=== PATIENT | female | born 1980 | race Hispanic/Latino ===

== ENCOUNTER 2016-04-25 00:05 | Emergency (ER) | payer SELFPAY ==
[~2016-04-25] VITALS: Ht 144.8 cm; Wt 54.8 kg
[~2016-04-25 00:05] MED LIST: AMOXICILLIN250 M1 OR; AMOXICILLIN500 MG PO; CIPROFLOXACN500 MG PO; DIABETA2.5 MG OR; FERROUS SULFAT325 MG PO; GLIPIZIDE ER2.5 MG PO; GLYBURIDE5 MG PO; IBUPROFEN600 MG PO; KEFLEX500 MG OR; LOPID600 MG PO; LORTAB 7.57.5 MG PO; MACRODANTIN100 MG OR; METFORMIN500 M1 PO; METFORMIN500 MG PO; NO HOME MEDS; NO MEDS; NOVOLIN N1000 UNITS SC; NOVOLIN R SC; NOVOLOG MIX100 U/ML SC; PRENATAL1 TAB OR; PREVACID30 M1 PO; PROCARDIA10 MG PO; TORADOL OR; ULTRAM50 MG OR; UNKNOWN INSULIN; ZOFRAN4 MG OR; ZPAK PO; [UNRECOGNIZED DRUG - OTHER]
[2016-04-25 00:59] LABS: URINE BILIRUBIN - DIPSTICK NEGATIVE (NEGATIVE); URINE BLOOD DIPSTICK SMALL (NEGATIVE); URINE CLARITY CLOUDY; URINE COLOR YELLOW; URINE GLUCOSE - DIPSTICK >=1000 mg/dL (NEGATIVE); URINE KETONE NEGATIVE (NEGATIVE); URINE LEUK ESTERASE NEGATIVE (Negative); URINE NITRITE - DIPSTICK NEGATIVE (Negative); URINE PROTEIN - DIPSTICK 30 mg/dL (NEG-TRACE); URINE UROBILINOGEN - DIPSTICK 0.2 E.U./dL (0.2)
[2016-04-25 01:09] LABS: URINE BACTERIA MODERATE hpf; URINE RBC 0-2 RBC/hpf (0-5); URINE SQUAMOUS EPITHELIAL CELL FEW EPI/hpf (0-FEW)
[2016-04-25 01:13] LABS: HEMATOCRIT 39.8 % (37.0-47.0); HEMOGLOBIN 12.6 g/dl (12.0-16.0); IMMATURE GRANULOCYTES 0.4 % (0.0-1.0); MEAN CELL VOLUME 67.5 fL CALC (80.0-100.0); MEAN CORPUSCULAR HGB 21.4 pG CALC (26.0-32.0); MEAN CORPUSCULAR HGB CONC 31.7 g/L CALC (32.0-36.0); NEUT# 8.49 thou/uL (2.00-7.15); RED BLOOD COUNT 5.9 mill/uL (4.20-5.60); RED CELL DISTRI WIDTH 18.5 % (11.5-15.5)
[2016-04-25 01:25] LABS: ALBUMIN 4.2 g/dL (3.2-5.0); ALKALINE PHOSPHATASE 152 u/l (38-126); AMYLASE 51 u/l (30-110); ANION GAP 19 (6-22 (CALC)); BILIRUBIN, TOTAL 0.9 mg/dL (0.0-1.4); BUN 12 mg/dL (7-17); BUN/CREATININE RATIO 27 (12-20 (CALC)); CALCIUM 9.2 mg/dL (8.4-10.2); CARBON DIOXIDE 24 mmol/l (22-30); CHLORIDE 99 mmol/l (95-108); CREATININE 0.5 mg/dL (0.5-1.0); GFR > 60 ML/MIN (>=60 (CALC)); GFR FOR AFR.AMER. > 60 ML/MIN (>=60 (CALC)); GLUCOSE 405 mg/dL (65-105); LIPASE 125 u/l (23-300); POTASSIUM 4.3 mmol/l (3.5-5.1); SGOT/AST 18 u/l (14-36); SGPT/ALT 23 u/l (9-52); SODIUM 138 mmol/l (137-146); TOTAL PROTEIN 8.3 g/dL (6.3-8.2)
[2016-04-25] MEDS ORDERED: Levaquin PO ×2 (06:09→06:15)
[2016-04-25 06:11] VITALS: BP 100/61
[2016-04-25] MEDS ORDERED: METFORMIN1000 MG PO ×2 (06:11→06:15)
== END 2016-04-25 06:32 | disposition home or self-care (01) | DRG 690 ==
LOC: ED 00:05
PROVIDERS: Emergency Medicine
DX: N39.0 Urinary tract infection, site not specified (principal); E11.65 Type 2 diabetes mellitus with hyperglycemia; R50.9 Fever, unspecified; R11.2 Nausea with vomiting, unspecified; R10.9 Unspecified abdominal pain

== ENCOUNTER 2019-02-10 19:50 | Inpatient (IN) | payer SELFPAY ==
[~2019-02-10] VITALS: Ht 147.3 cm; Wt 69.0 kg
[~2019-02-10 19:50] MED LIST changes: +Levaquin PO; +METFORMIN1000 MG PO
--- NOTE | 2019-02-10 19:50 | NUR ---
PT TO ROOM 12 BY EMS. REPORTED PT DRANK A LOT OF ETOH TONIGHT THEN FELT CHEST PAIN. PT DENIES ANY PAIN NOW.
[2019-02-10 20:25] LABS: HEMOGLOBIN 13.7 g/dl (12.0-16.0); IMMATURE GRANULOCYTES 0.6 % (0.0-5.0); MEAN CORPUSCULAR HGB 28.8 pG CALC (26.0-32.0); MEAN CORPUSCULAR HGB CONC 35.1 g/L CALC (32.0-36.0); NEUT# 11.73 thou/uL (2.00-7.15); RED BLOOD COUNT 4.75 mill/uL (4.20-5.60); RED CELL DISTRI WIDTH 13.2 % (11.5-15.5)
[2019-02-10 20:27] LABS: MEAN CELL VOLUME 82.1 fL CALC (80.0-100.0)
[2019-02-10 20:29] LABS: URINE BILIRUBIN - DIPSTICK NEGATIVE (NEGATIVE); URINE BLOOD DIPSTICK TRACE-LYSED (NEGATIVE); URINE COLOR YELLOW; URINE GLUCOSE - DIPSTICK >=1000 mg/dL (NEGATIVE); URINE KETONE 40 mg/dL (NEGATIVE); URINE LEUK ESTERASE NEGATIVE (NEGATIVE); URINE PROTEIN - DIPSTICK 100 mg/dL (NEG-TRACE); URINE UROBILINOGEN - DIPSTICK 0.2 E.U./dL (0.2)
[2019-02-10 20:33] LABS: BARBITURATES NEGATIVE (NEGATIVE); COCAINE NEGATIVE (NEGATIVE); METHADONE NEGATIVE (NEGATIVE); OXCYCODONE NEGATIVE (NEGATIVE); TETRAHYDROCANNABIONOL NEGATIVE (NEGATIVE); TRICYLIC ANTIDEPRESSANTS NEGATIVE (NEGATIVE)
[2019-02-10 20:37] LABS: URINE NITRITE - DIPSTICK POSITIVE (Negative)
[2019-02-10 20:48] LABS: URINE SQUAMOUS EPITHELIAL CELL FEW EPI/hpf (0-FEW)
[2019-02-10 20:49] LABS: URINE BACTERIA FEW hpf
--- NOTE | 2019-02-10 20:50 | NUR ---
PT'S FAMILY ASKED IF WE COULD TRANSFER PT TO [place]. FAMILY STATED PT WANTED TO GO TO [place] TO BEGIN WITH BUT THEY COULDNT TAKE HER. INFORMED PT WE HAVE TO WAIT FOR TEST RESULTS TO SEE IF THERE IS A REASON TO ADMIT OR TRANSFER.
[2019-02-10 21:16] LABS: ALBUMIN 4.6 g/dL (3.2-5.0); ALKALINE PHOSPHATASE 130 u/l (38-126); ANION GAP 24 (6-22 (CALC)); BILIRUBIN, TOTAL 0.7 mg/dL (0.0-1.4); BUN 14 mg/dL (7-17); BUN/CREATININE RATIO 49 (12-20 (CALC)); CHLORIDE 101 mmol/l (95-108); CREATININE 0.3 mg/dL (0.5-1.0); ETHYL ALCOHOL 149 mg/dl (0-30); GFR > 60 ML/MIN (>=60 (CALC)); GFR FOR AFR.AMER. > 60 ML/MIN (>=60 (CALC)); POTASSIUM 3.5 mmol/l (3.5-5.1); SGOT/AST 28 u/l (14-36); SODIUM 138 mmol/l (137-146); TOTAL PROTEIN 8.9 g/dL (6.3-8.2)
[2019-02-10 21:17] LABS: CARBON DIOXIDE 17 mmol/l (22-30)
--- NOTE | 2019-02-10 21:26 | NUR ---
PT MORE ALERT. NEW ORDERS FOR LABS AND ABG PLACED.
[2019-02-10 21:27] LABS: MYOGLOBIN 58 ng/mL (0 - 62)
--- NOTE | 2019-02-10 22:08 | NUR ---
LACTIC ACID 3.9- DR GALINDO INFORMED. PT ALREADY HAD 1 LITER OF NS.
--- NOTE | 2019-02-10 22:54 | NUR ---
SBAR PRINTED TO FLOOR
--- NOTE | 2019-02-10 23:36 | NUR ---
REPEAT LACTIC ACID 3.2- PT AWAKE ALERT AND TALKING WITH FAMILY. PT STATES HER BLOOD SUGAR IS ALWAYS OVER 200 AND DOES NOT HAVE A DOCTOR SHE FOLLOWS UP WITH.
--- NOTE | 2019-02-10 23:58 | NUR ---
REPORT GIVEN TO KRISHNA REGALADO.
[2019-02-11] VITALS (18 sets, daily range): BP systolic 92–139; BP diastolic 58–77
--- NOTE | 2019-02-11 | NUR ---
Admission Note Report Given to: KRISHNA MCMAHON Transported by: Wheelchair X Stretcher Transported with: X Nurse Transporter X Patent IV O2 X Treating Engineer HARDEN CATHETER TO BSD. 1200 CC URINE OUT PRIOR TO TRANSPORT.
--- NOTE | 2019-02-11 00:15 | NUR ---
PT ARRIVES VIA ER STRETCHER ACCOMPANIED BY ER NURSE, PT CONNECTED TO MONITOR. PT ABLE TO WALK TO ICU BED 5 WITH ASSIT X1, UNSTEADY GAIT OBSERVED. PT ON RA, NO SOB NOTED. DENIES CHEST PAIN, REPORTS BACK PAIN. DAUGHTER AND SISTER IN LAW WERE BROUGHT TO ROOM. PTS DAUGHTER ABLE TO HELP TO ANSWER MEDICAL HISTORY QUESTIONS. PT'S DAUGHTER REPORTS PT WAS DISCHARGED FROM [facility] LESS THAN ONE WEEK AGO FOR CHEST PAIN, BACK PAIN, AND ELEVATED BLOOD SUGAR, DAUGHTER REPORTS SHE WAS STARTED ON A ACID REFLUX MEDICATION AND METFORMIN, DAUGHTER REPORTS PATIENT KNEW SHE WAS DIABETIC BEFORE SHE WAS HOSPITALZIED THIS LAST TIME BUT DID NOT TAKE MEDICATION FOR IT UNTIL SHE WAS DISCHARGED AND PRESCRIBED METFORMIN THIS LAST TIME. PATIENT DROWSY, ORIENTED X3. HEAD TO TOE NURSING ASSESSMENT PERFORMED. HARDEN CATHETER INTACT, DRAINS YELLOW/CLOUDY URINE. R-WRIST 18G IV INTACT, SALINE LOCKED. LAZARUS HOSE PLACED. DAUGHTER REPORTS PT OCCASSIONALLY DRINKS TEQUILA AND SHE WAS POSITIVE FOR ALCOHOL BECAUSE SHE DRANK ALCOHOL BECAUSE SHE REPORTS SHE HAD A BIG FAMILY GATHERING. POC FOR TONIGHT DISCUSSED, PT AGREES. CALL LIGHT WITHIN REACH. SELF REPOSITIONS.
--- NOTE | 2019-02-11 00:45 | NUR ---
CALLED AND SPOKE TO DR GALINDO IN ER REGARDING IF MORE LACTIC ACIDS NEED TO BE ORDERED, HE ORDERS PT DOES NOT NEED MORE LACTIC ACID TO BE DRAWN, CONTINUE ISULIN DRIP PER DKA PROTOCOL. TYLENOL 500 MG PO Q6H PRN FOR GALVAN ORDERED. I HAVE PLACED LAB ORDERS ACCORDING TO DKA PROTOCOL, WILL START INSULIN DRIP ACCORDING TO RECENT BLOOD WORK.
--- NOTE | 2019-02-11 01:14 | NUR ---
NURSING TECHNICIAN AT BEDSIDE.
--- NOTE | 2019-02-11 01:21 | NUR ---
NURSE FRANKLIN HAS STARTED A NEW IV.
[2019-02-11 01:43] LABS: MAGNESIUM 1.7 mg/dL (1.6-2.3)
[2019-02-11 01:44] LABS: ANION GAP 17 (6-22 (CALC)); BUN 8 mg/dL (7-17); BUN/CREATININE RATIO 42 (12-20 (CALC)); CARBON DIOXIDE 17 mmol/l (22-30); CHLORIDE 106 mmol/l (95-108); CREATININE 0.2 mg/dL (0.5-1.0); GFR > 60 ML/MIN (>=60 (CALC)); GFR FOR AFR.AMER. > 60 ML/MIN (>=60 (CALC)); POTASSIUM 3.5 mmol/l (3.5-5.1); SODIUM 137 mmol/l (137-146)
--- NOTE | 2019-02-11 02:52 | NUR ---
PT LAYS ON HER LEFT SIDE. NO ACUTE DISTRESS SHOWN, REPORTS PAIN HAS DECREASED. SISTER IN LAW AT BEDSIDE. CALL LIGHT WITHIN REACH.
--- NOTE | 2019-02-11 04:00 | NUR ---
PATIENT LAYS WITH HOB 30 DEGREES. RESTS WITH EYES CLOSED. NO ACUTE DISTRESSS HOWN. NO COMPLAINTS, SISTER IN LAW REMAINS AT BEDISDE. CALL LIGHT WITHIN REACH.
[2019-02-11 05:49] LABS: ANION GAP 13 (6-22 (CALC)); BUN 10 mg/dL (7-17); BUN/CREATININE RATIO 46 (12-20 (CALC)); CARBON DIOXIDE 20 mmol/l (22-30); CHLORIDE 105 mmol/l (95-108); CREATININE 0.2 mg/dL (0.5-1.0); GFR > 60 ML/MIN (>=60 (CALC)); GFR FOR AFR.AMER. > 60 ML/MIN (>=60 (CALC)); POTASSIUM 3.5 mmol/l (3.5-5.1); SODIUM 134 mmol/l (137-146)
--- NOTE | 2019-02-11 08:00 | NUR ---
PT SEEN AWAKE, ALERT, ORIENTED X 3, COMORAN ONLY. INSULIN DRIP RUNNING AT 2 UNITS HOURLY, D5.45NS AT 125 ML/HR ALSO. HARDEN CATHETER IN PLACE. NO COMPLAINT OF CHEST PAIN OR SHORTNESS OF BREATH OR OTHERWISE.
--- NOTE | 2019-02-11 10:00 | NUR ---
DR BARBOZA HAS BEEN IN TO SEE PT, NEW ORDERS RECEIVED. HARDEN CATHETER REMOVED. INSULIN DRIP STOPPED, LEVEMIR GIVEN. AT BEDSIDE.
--- NOTE | 2019-02-11 12:00 | NUR ---
PT NOW WITH INSULIN DRIP OFF, APPEARS TO BE IN NO DISTRESS. PT ATE LUNCH WELL.
--- NOTE | 2019-02-11 16:00 | NUR ---
PT REMAINS BEFORE, NO DISTRESS, NO COMPLAINTS. AT BEDSIDE.
--- NOTE | 2019-02-11 18:45 | NUR ---
PATIENT LAYS WITH HOB 45 DEGREES, AT BEDSIDE, IS ALERT, AWAKE, NO NEEDS AT THIS TIME. CALL LIGHT WITHIN REACH.
--- NOTE | 2019-02-11 19:50 | NUR ---
PATIENT LAYS WITH HOB 45 DEGREES. ON ROOM AIR, SATS GREATER THAN 95%. ALERT AND ORIENTED X4. HEAD TO TOE NURSING ASSESSMENT PERFORMED. R-WR 18G AND LFA 22 G IV'S INTACT, NS INFUSING AT 125 ML/HR. PATIENT C/O BACK PAIN, ACCEPTS TYLENOL. AT BEDSIDE. POC FOR TONIGHT DISCUSSED. LAZARUS HOSE INTACT, SELF REPSOITIONS. CALL LIGHT WITHIN REACH.
--- NOTE | 2019-02-11 21:33 | NUR ---
BEDTIME MEDICATIONS PROVIDED, DAUGHTER HAS ARRIVED AT BEDSIDE. NO NEEDS OR COMPLAINTS AT THIS TIME.
--- NOTE | 2019-02-11 22:42 | NUR ---
PATIENT LAYS WITH HOB 30 DEGREES. AT BEDSIDE. NO ACUTE DISTRESS SHOWN. CALL LIGHT WITHIN REACH.
[2019-02-12] VITALS (7 sets, daily range): BP systolic 106–137; BP diastolic 64–80
--- NOTE | 2019-02-12 00:30 | NUR ---
PT LAYS WITH HOB 30 DEGREES, RESTS WITH EYES CLOSED. NO ACUTE DISTRESS SHOWN. CALL LIGHT WITHIN REACH.
--- NOTE | 2019-02-12 02:00 | NUR ---
PT RESTS WITH EYES CLOSED, NO ACUTE DISTRESS SHOWN. CALL LIGHT WITHIN REACH.
--- NOTE | 2019-02-12 03:31 | NUR ---
PT ASSISTED TO BSC TO VOID, PT NOT ABLE TO HAVE A BM, ONLY GAS. NOW SAFELY BACK IN BED, NO OTHER NEEDS, NO COMPLAINTS. CALL LIGHT WITHIN REACH.
[2019-02-12 05:33] LABS: HEMATOCRIT 34.6 % (37.0-47.0); MEAN CELL VOLUME 86.9 fL CALC (80.0-100.0); MEAN CORPUSCULAR HGB 28.9 pG CALC (26.0-32.0); MEAN CORPUSCULAR HGB CONC 33.2 g/L CALC (32.0-36.0); RED BLOOD COUNT 3.98 mill/uL (4.20-5.60); RED CELL DISTRI WIDTH 13.2 % (11.5-15.5)
[2019-02-12 05:47] LABS: HEMOGLOBIN 11.5 g/dl (12.0-16.0)
[2019-02-12 05:58] LABS: ANION GAP 11 (6-22 (CALC)); BUN 10 mg/dL (7-17); BUN/CREATININE RATIO 27 (12-20 (CALC)); CARBON DIOXIDE 21 mmol/l (22-30); CHLORIDE 108 mmol/l (95-108); CREATININE 0.4 mg/dL (0.5-1.0); GFR > 60 ML/MIN (>=60 (CALC)); GFR FOR AFR.AMER. > 60 ML/MIN (>=60 (CALC)); POTASSIUM 3.8 mmol/l (3.5-5.1); SODIUM 135 mmol/l (137-146)
--- NOTE | 2019-02-12 06:42 | NUR ---
PT RESTS WITH EYES CLOSED, NO ACUTE DISTRESS SHOWN, CLL LIGHT WITHIN REACH.
--- NOTE | 2019-02-12 08:00 | NUR ---
PT IS AWAKE, ALERT, ORIENTED X 3. BLOOD SUGARS HAVE REMAINED 200s. NO DISTRESS NOTED, NOT SHORTNESS OF BREATH OR OTHERWISE. LUNGS CLEAR.
[2019-02-12] MEDS ORDERED: METFORMIN1000 MG PO (09:45)
[2019-02-12] MEDS ORDERED: GLIPIZIDE5 M2 PO (09:45)
[2019-02-12] MEDS ORDERED: KEFLEX500 MG PO (09:46)
--- NOTE | 2019-02-12 11:52 | NUR ---
PT IS DISCHARGED TO HOME. PT SEEN BY DR BARBOZA THIS MORNING, CONDITION STABLE. [facility] WAS ABLE TO PROVIDE MEDICINES TO HER FREE OF CHARGE. PT DID VERBALIZE UNDERSTANDING OF DC INSTRUCTIONS, AMBULATED TO VEHICLE, REFUSED WHEELCHAIR. PT LEAVES [facility] IN STABLE CONDITION.
== END 2019-02-12 11:55 | disposition home or self-care (01) | DRG 638 ==
LOC: ED 19:50 → ED-I 20:12 → ED 20:12 → ED-I 22:44 → ED 23:16 → ICU 23:17
PROVIDERS: Emergency Medicine; Internal Medicine; ADMIT Internal Medicine; ATTEND Internal Medicine
PROC: 0T9B70Z Drainage of Bladder with Drainage Device, Via Natural or Artificial Opening (ICD-10-PCS; principal; 2019-02-10)
DX: E11.10 Type 2 diabetes mellitus with ketoacidosis without coma (principal); N39.0 Urinary tract infection, site not specified; F10.129 Alcohol abuse with intoxication, unspecified; T38.3X6A Underdosing of insulin and oral hypoglycemic [antidiabetic] drugs, initial encounter; Z91.128 Patient's intentional underdosing of medication regimen for other reason; Z79.84 Long term (current) use of oral hypoglycemic drugs

== ENCOUNTER 2021-08-19 02:45 | Emergency (ER) | payer SELFPAY ==
[~2021-08-19] VITALS: Ht 147.3 cm; Wt 52.0 kg
[~2021-08-19 02:45] MED LIST changes: +GLIPIZIDE5 M2 PO; +KEFLEX500 MG PO
[2021-08-19 03:10] LABS: HEMATOCRIT 33.7 % (37.0-47.0); HEMOGLOBIN 11.4 g/dl (12.0-16.0); IMMATURE GRANULOCYTES 0.2 % (0.0-5.0); MEAN CELL VOLUME 85.3 fL CALC (80.0-100.0); MEAN CORPUSCULAR HGB 28.9 pG CALC (26.0-32.0); MEAN CORPUSCULAR HGB CONC 33.8 g/dL CAL (32.0-36.0); NEUT# 5.45 thou/uL (2.00-7.15); RED BLOOD COUNT 3.95 mill/uL (4.20-5.60); RED CELL DISTRI WIDTH 12.1 % (11.5-15.5)
[2021-08-19 03:21] LABS: ALBUMIN 3.7 g/dL (3.2-5.0); ALKALINE PHOSPHATASE 96 u/l (38-126); ANION GAP 18 (6-22 (CALC)); BUN 16 mg/dL (7-17); BUN/CREATININE RATIO 27 (12-20 (CALC)); CARBON DIOXIDE 19 mmol/l (22-30); CHLORIDE 101 mmol/l (95-108); CREATININE 0.6 mg/dL (0.5-1.0); ETHYL ALCOHOL 187 mg/dl (0-30); GFR FOR AFR.AMER. > 60 ML/MIN (>=60 (CALC)); GFR OTHER RACES > 60 ML/MIN (>=60 (CALC)); LIPASE 134 u/l (23-300); MAGNESIUM 1.8 mg/dL (1.6-2.3); POTASSIUM 3.1 mmol/l (3.5-5.1); SGOT/AST 25 u/l (14-36); SODIUM 134 mmol/l (137-146)
[2021-08-19 03:22] LABS: BILIRUBIN, TOTAL 0.2 mg/dL (0.0-1.4); TOTAL PROTEIN 6.7 g/dL (6.3-8.2)
[2021-08-19 03:35] LABS: MYOGLOBIN 64 ng/mL (0 - 62)
[2021-08-19 03:36] LABS: INTERNATIONAL NORMALIZED RATIO 0.9 RATIO (0.7-1.3); PROTHROMBIN TIME 9.9 SECONDS (9.0-12.5)
[2021-08-19 03:47] LABS: URINE BILIRUBIN - DIPSTICK NEGATIVE (NEGATIVE); URINE BLOOD DIPSTICK NEGATIVE (NEGATIVE); URINE COLOR YELLOW; URINE GLUCOSE - DIPSTICK >=1000 mg/dL (NEGATIVE); URINE KETONE NEGATIVE (NEGATIVE); URINE LEUK ESTERASE NEGATIVE (NEGATIVE); URINE PROTEIN - DIPSTICK NEGATIVE (NEG-TRACE); URINE UROBILINOGEN - DIPSTICK 0.2 E.U./dL (0.2)
[2021-08-19 03:48] LABS: URINE NITRITE - DIPSTICK NEGATIVE (Negative)
[2021-08-19] MEDS ORDERED: POTASSIUM CHLO20 ME1 PO (05:05)
[2021-08-19 06:41] VITALS: BP 106/59
== END 2021-08-19 06:44 | disposition home or self-care (01) | DRG 897 ==
LOC: ED 02:45
PROVIDERS: Family Medicine
DX: F10.129 Alcohol abuse with intoxication, unspecified (principal); E11.65 Type 2 diabetes mellitus with hyperglycemia; E87.6 Hypokalemia; Z79.84 Long term (current) use of oral hypoglycemic drugs

== ENCOUNTER 2022-02-13 05:54 | Emergency (ER) | payer MEDICAID ==
[~2022-02-13] VITALS: Ht 147.3 cm; Wt 65.0 kg
[~2022-02-13 05:54] MED LIST changes: +POTASSIUM CHLO20 ME1 PO
[2022-02-13 06:18] VITALS: BP 120/68
[2022-02-13] MEDS ORDERED: METFORMIN HCL500 M1 PO (06:29)
[2022-02-13 06:30] VITALS: BP 104/69
[2022-02-13 07:12] LABS: BASO% 0.5 % (0-3); EOS% 1.7 % (0-8); HEMATOCRIT 37.8 % (37.0-47.0); HEMOGLOBIN 12.9 g/dl (12.0-16.0); IMMATURE GRANULOCYTES 0.5 % (0.0-5.0); LYMPH% 28.7 % (15-41); MEAN CELL VOLUME 85.5 fL CALC (80.0-100.0); MEAN CORPUSCULAR HGB 29.2 pG CALC (26.0-32.0); MEAN CORPUSCULAR HGB CONC 34.1 g/dL CAL (32.0-36.0); MONO% 7.3 % (2-13); NEUT# 3.59 thou/uL (2.00-7.15); NEUT% 61.3 % (42-76); RED BLOOD COUNT 4.42 mill/uL (4.20-5.60)
[2022-02-13 07:28] LABS: ALBUMIN 4.2 g/dL (3.2-5.0); ALKALINE PHOSPHATASE 140 u/l (38-126); BUN 16 mg/dL (7-17); BUN/CREATININE RATIO 36 (12-20 (CALC)); CHLORIDE 101 mmol/l (95-108); CREATININE 0.4 mg/dL (0.5-1.0); GFR FOR AFR.AMER. > 60 ML/MIN (>=60 (CALC)); GFR OTHER RACES > 60 ML/MIN (>=60 (CALC)); SGOT/AST 37 u/l (14-36); SODIUM 136 mmol/l (137-146); TOTAL PROTEIN 7.8 g/dL (6.3-8.2)
[2022-02-13 07:42] LABS: ANION GAP 14 (6-22 (CALC)); BILIRUBIN, TOTAL 0.7 mg/dL (0.0-1.4); CARBON DIOXIDE 26 mmol/l (22-30); POTASSIUM 4.6 mmol/l (3.5-5.1)
[2022-02-13] MEDS ORDERED: ZOFRAN4 MG/TAB PO (08:45)
[2022-02-13 08:52] VITALS: BP 104/69
== END 2022-02-13 09:16 | disposition home or self-care (01) ==
LOC: ED 05:54
PROVIDERS: Family Medicine
DX: J06.9 Acute upper respiratory infection, unspecified (principal); E11.9 Type 2 diabetes mellitus without complications; Z20.822 Contact with and (suspected) exposure to COVID-19; Z79.84 Long term (current) use of oral hypoglycemic drugs

== ENCOUNTER 2022-09-04 12:10 | Emergency (ER) | payer SELFPAY ==
[~2022-09-04] VITALS: Ht 147.3 cm; Wt 52.0 kg
[~2022-09-04 12:10] MED LIST changes: +METFORMIN HCL500 M1 PO; +ZOFRAN4 MG/TAB PO
[2022-09-04 12:21] VITALS: BP 116/69
[2022-09-04] MEDS ORDERED: NEURONTIN100 MG PO (12:28)
[2022-09-04] MEDS ORDERED: VALTREX1 GM PO (12:28)
[2022-09-04 12:30] VITALS: BP 104/66
[2022-09-04 12:43] VITALS: BP 104/66
== END 2022-09-04 12:44 | disposition home or self-care (01) | DRG 596 ==
LOC: ED 12:10
DX: B02.9 Zoster without complications (principal); E11.9 Type 2 diabetes mellitus without complications; Z79.84 Long term (current) use of oral hypoglycemic drugs